=== PATIENT | female | born 1980 | race Caucasian/White ===

== ENCOUNTER 2016-06-12 15:48 | Outpatient (CLI) | payer OTHER ==
--- NOTE | 2016-06-12 17:25 | DIAGNOSTIC IMAGING REPORT ---
PROCEDURE: US COMPLETE PELVIC W/TRANSVAG INDICATION: AUB TECHNIQUE: Transabdominal and endovaginal broderick scale and color Doppler sonographic images of the female pelvis were obtained. COMPARISON: Pelvic ultrasound 02/10/2016 FINDINGS: TRANSABDOMINAL SCANS: Anteverted uterus. Normal kidneys. TRANSVAGINAL SCANS: Myometrium measures 9 x 5.1 x 4.0 cm. There is a 1 cm left posterior fibroid. Normal endometrium measures 5 mm. Right ovary measures 3.4 x 1.6 x 1.7 cm and left ovary 2.6 x 3.5 x 2.9 cm. Peripheral follicles noted bilaterally. Small amount of echogenic fluid in the cul-de-sac, suggestive of hemorrhage. IMPRESSION: 1. 1 cm fibroid. 2. Bilateral ovarian follicles with small amount of hemorrhagic free fluid in the cul-de-sac.
== END 2016-06-12 23:00 ==
LOC: US SRH 15:48
DX: D25.9 Leiomyoma of uterus, unspecified (principal); N83.02 Follicular cyst of left ovary; N83.01 Follicular cyst of right ovary

== ENCOUNTER 2016-08-10 09:49 | Outpatient (CLI) | payer OTHER ==
--- NOTE | 2016-08-10 12:04 | DIAGNOSTIC IMAGING REPORT ---
PROCEDURE: US COMPLETE PELVIC W/TRANSVAG INDICATION: PELVIC PAIN TECHNIQUE: Transabdominal and endovaginal broderick scale and color Doppler sonographic images of the female pelvis were obtained. COMPARISON: Pelvic ultrasound dated 06/12/2016 FINDINGS: TRANSABDOMINAL SCANS: The uterus is of normal size 8.3 x 5.9 x 4.4 cm Kidneys are normal. TRANSVAGINAL SCANS: The uterus is anteverted. Myometrium contains an 11 mm fibroid. The endometrium measures 6.5 mm. Right ovary is normal measuring 3.9 x 2.3 x 2 cm. They are two of follicles on the right ovary one measuring 5 mm and the other measuring 3 mm. The left ovary is normal measuring 3.9 x 2.8 well 0.7 cm. There is good flow in both ovaries. IMPRESSION: 1. 1 cm fibroid. 2. Right ovarian follicles versus angiomyolipomas measuring 5 and 3 mm. 3. Endometrium measures 6.5 mm
== END 2016-08-10 23:00 ==
LOC: US SRH 09:49 → LAB SRH 09:49 → US SRH 10:00
DX: C50.911 Malignant neoplasm of unspecified site of right female breast (principal); D25.9 Leiomyoma of uterus, unspecified; R93.8 Abnormal findings on diagnostic imaging of other specified body structures
CPT/HCPCS: 90074; 90100; 95059; 97099